=== PATIENT | female | born 1975 | race Caucasian/White ===

== ENCOUNTER 2016-10-12 14:17 | Emergency (ER) | payer MEDICAID, OTHER ==
--- NOTE | 2016-10-12 14:34 | EDPHY ---
H & P Stated Complaint: PAIZ for 3 days - Personal History LMP (Females 10-55): Now Current Tetanus/Diphtheria Vaccine: Yes Current Tetanus Diphtheria and Acellular Pertussis (TDAP): Yes Tetanus Vaccine Date: < 10 YEARS - Medical/Surgical History Hx Asthma: No Hx Chronic Respiratory Disease: No Hx Diabetes: No Hx Cardiac Disease: No Hx Renal Disease: No Hx Cirrhosis: No Hx Alcoholism: No Hx HIV/AIDS: No Hx Splenectomy or Spleen Trauma: No Other PMH: saw arnoldo 10-15 began lexapro, acifex and carafate/ - Social History Smoking Status: Never smoked Time Seen by Provider: 10/12/16 14:34 Constitutional: Initial Vital Signs Temperature (C) 36.3 C 10/12/16 14:20 Heart Rate 63 10/12/16 14:20 Respiratory Rate 16 10/12/16 14:20 Blood Pressure 129/95 H 10/12/16 14:20 O2 Sat (%) 98 10/12/16 14:20 O2 Delivery Mode Room Air Allergies/Adverse Reactions: No Known Allergies Allergy (Unverified 06/30/12 10:40) Home Medications: Medication Instructions Recorded LEVOTHYROXINE SODIUM [Tirosint mcg PO 12/30/11 25mcg] Acifex 07/10/15 Lexapro 07/10/15 oxyCODONE/APAP 5/325 [Percocet 1 tab PO Q6 #10 tab 09/06/15 5/325] Medical Decision Making - Diagnostics Imagin. CT head without contrast: Negative for intracranial hemorrhage. 2. CT venogram: Negative for acute thrombosis. Study results reported to me by Dr. Tavo Quiñones. (Tyree Hdz) ED Course/Re-evaluation: CHIEF COMPLAINT: Headache, blurred vision. HISTORY OF PRESENT ILLNESS: The patient is a 41-year-old female who presents with 3 days of right-sided headache and blurry vision. She has no history of migraines and no family migraine history. She denies extremity complaints: no numbness, no weakness, no pain. The blurriness is in both of her eyes but worse in the right. The pain is alleviated slightly with applying pressure and with Advil. She denies provoking factors. She denies head trauma, recent changes in medication. REVIEW OF SYSTEMS: A 10 point review of systems was performed and is negative with the exception of the elements mentioned in the history of present illness. PHYSICAL EXAM: HR, BP, O2 Sat, RR. Temp noted General Appearance: Alert, well hydrated, appropriate, and non-toxic appearing. Head: Atraumatic without scalp tenderness or obvious injury Eyes: Pupils equal, round, reactive to light and accommodation, EOMI, no trauma , no injection. Ears: Clear bilaterally, no perforation, normal landmarks Nose: Atraumatic, no rhinorrhea, clear. Throat: There is no erythema or exudates, no lesions, normal tonsils, mucus membranes moist. Neck: Supple, 2+ carotid upstroke, nontender, no lymphadenopathy. Respiratory: No retractions, no distress, no wheezes, and no accessory muscle use. Lungs are clear to auscultation bilaterally. Cardiovascular: Regular rate and rhythm, no murmurs, rubs, or gallops. Bilateral carotid, radial, dorsalis pedis, and posterior tibial pulses intact. Good capillary refill all extremities. Gastrointestinal: Abdomen is soft, nontender, non-distended, no masses, no rebound, no guarding, no peritoneal signs. Musculoskeletal: Normal active ROM of all extremities, atraumatic. Neurological: Alert, appropriate, and interactive. The patient has normal DTRs and non-focal cranial nerves, motor, sensory, and cerebellar exam. Skin: No rashes, good turgor, no nodules on palpation. Past medical history:Denies. Family history:No migraines. Social history:Here alone, . DIAGNOSTICS/PROCEDURES/CRITICAL CARE TIME: Study: CT of the head wwo contrast. Indication: Headache, blurry vision. Results: ____ The study was read by the radiologist, . I viewed the images myself on the PACS system. DIFFERENTIAL DIAGNOSIS: The differential diagnosis for the patient's headache included but was not limited to subarachnoid hemorrhage, migraine headache, tension headache and infectious causes such as meningitis, pharyngitis and sinusitis. MEDICAL DECISION MAKING: This is a 41-year-old female not prone to migraines who presents with a right- sided headache and blurry vision for the last 3 days. She describes the pain as a pressure. The blurriness appears to be in both eyes but is worse in the right eye. Because she does not usually get migraines and has no family history, I believe imaging is indicated. Head CT wwo contrast ordered. 30mg IV Toradol, 10mg IV Decadron, 10mg IV Reglan administered for migraine. (Neil Vasquez) The patient was turned over to me by Dr. Vasquez at shift change pending results of her CT scan and CT angiogram. Results of the patient's CT scan and CT angiogram are unremarkable. I re- evaluated the patient at 5:30 p.m.. She is feeling much better. Her blurry vision has resolved. The patient does continue to have a slight right temporal headache. The patient describes a headache that is located along the distribution of the temporalis muscle. She has a nonfocal neurologic examination. She has no meningeal symptoms. At this point time I do not feel her headache pattern is 1 consistent with subarachnoid hemorrhage. She has had a 3 day gradual constant right temporal headache which seems to be more extracranial on her exam. The patient will be instructed to use NSAIDs. She is given a prescription for Zofran as well as Gary. She has been given customary return precautions. She should follow up with her primary care provider for recheck in 2-3 days. I have told her that further evaluation by Neurology may be indicated for unimproved symptoms. The patient did recently stop her Lexapro dose for several days and resumed taking yesterday. That may be contributing to her headache today. (Tyree Hdz) Differential Diagnosis: Differential diagnosis considered includes intracranial hemorrhage, migraine syndrome, central vein thrombosis, meningitis (Tyree Hdz) - Data Points Laboratory Results: 10/12/16 15:12 POC Hgb 15.0 gm/dL (12.3-15.9) POC Hct 44 % (35.5-47.5) POC Sodium 143 mEq/L (134-144) POC Potassium 3.8 mEq/L (3.3-5.0) POC Chloride 106 mEq/L (96-108) POC BUN 27 H mg/dL (7-23) POC Creatinine 0.8 mg/dL (0.6-1.2) POC Glucose 85 mg/dL (70-100) Medications Given: Discontinued Medications Dexamethasone (Decadron Injection) 10 mg IVP EDNOW ONE Stop: 10/12/16 14:58 Last Admin: 10/12/16 15:33 Dose: 10 mg Ketorolac Tromethamine (Toradol) 30 mg IVP EDNOW ONE Stop: 10/12/16 14:58 Last Admin: 10/12/16 15:33 Dose: 30 mg Metoclopramide HCl (Reglan Injection) 10 mg IVP EDNOW ONE Stop: 10/12/16 14:58 Last Admin: 10/12/16 15:33 Dose: 10 mg Point of Care Test Results: 10/12/16 15:12 POC Sodium 143 POC Potassium 3.8 POC Chloride 106 POC BUN 27 H POC Creatinine 0.8 POC Glucose 85 Departure - Departure Disposition: Home, Routine, Self-Care Clinical Impression: Migraine Qualifiers: Qualifier Code: (G43.909) Migraine, unspecified, not intractable, without status migrainosus Condition: Good Instructions: Migraine Headache (ED) Additional Instructions: Follow up with your primary care provider in the next 1-2 days if your symptoms persist. Return to the emergency department if you experience serious worsening of condition. Take Ibuprofen or Motrin 600 mg by mouth three times a day. Gary as needed for severe pain Referrals: Domonique Henry MD [Primary Care Provider] - As per Instructions Report Scribed for: Neil Vasquez Report Scribed by: Kemar Escobar Date of Report: 10/12/16 Time of Report: 15:11
[2016-10-12] MEDS ORDERED: METOCLOPRAMIDE 10 MG/2 ML VIAL IVP ONE (14:57)
[2016-10-12] MEDS ORDERED: DEXAMETHASONE 10 MG/ML VIAL IVP ONE (14:57)
[2016-10-12] MEDS ORDERED: KETOROLAC 30 MG/1 ML SDV IVP ONE (14:57)
[2016-10-12] MEDS ORDERED: IOPAMIDOL (ISOVUE 370) 100 ML BTL IV ONE (15:54)
--- NOTE | 2016-10-12 16:47 | CT ---
CT Head (Without Contrast) October 12, 2016 at 1618 hours. Indication: Right-sided headache. Blurry vision.. Technique: Standard noncontrast head CT protocol utilizing 5 mm thick collimated slices and field of view 23 cm. Dose reduction techniques were utilized. Findings: The brain is normally developed. No intracranial hemorrhage, mass lesion, swelling, or ex traaxial fluid collection. The ventricles are normal caliber and midline. The hackett-white matter has n ormal attenuation. Mucous retention cyst is seen in the right maxillary sinus. No evidence for an ai r-fluid level in the paranasal sinuses. The bones are unremarkable. Impression: Mucous retention cyst in the right maxillary sinus. Otherwise normal. Comment: Case was discussed Dr. Tyree Jaffe. .
--- NOTE | 2016-10-12 16:56 | CT ---
CT Angiogram of the Brain at 1622 hours Clinical Indications: Headache. Blurred vision. Evaluate for venous sinus thrombosis. . Technique: CT angiogram of the brain was performed with the uneventful intravenous administration of 90 mL Isovue-370 contrast. Multiplanar reconstructions including 3D reconstructions performed and ev aluated on [employer] workstation in order to better evaluate the [place] vessels. Images were m anipulated by the radiologist at the computer workstation. Dose reduction techniques were utilized. Findings: Major vessels of the [place] are adequately displayed, demonstrating no evidence of aneurysm, vascular malformation, flow-limiting stenosis, or occlusion. Bilateral cavernous interna l carotid arteries and vertebrobasilar system demonstrates no evidence of flow-limiting stenosis, ane urysm, occlusion or dissection. Superior sagittal sinus, transverse sinuses, and major veins demonstr ate no evidence of intraluminal thrombi. The right P1 segment posterior cerebral artery is hypoplasti c with a patent right posterior communicating artery as a normal variant. Impression: Negative CT angiogram of the brain. Results called to Dr. Tyree Jaffe.
[2016-10-12 17:51] VITALS: BP 113/78; PULSE 59; RESP 14; TEMP 98.1; O2SAT 94
== END 2016-10-12 17:51 | disposition home or self-care (01) ==
DX: G43.909 Migraine, unspecified, not intractable, without status migrainosus (principal)
CPT/HCPCS: 82947-QW; 96374; J1885; J2765; Q9967

== ENCOUNTER 2018-02-12 11:40 | Emergency (ER) | payer OTHER ==
[2018-02-12] MEDS ORDERED: NS 1,000 ML IV ONE (12:58)
[2018-02-12] MEDS ORDERED: DICYCLOMINE 10 MG CAP PO ONE (12:58)
[2018-02-12 13:03] LABS: PLATELET COUNT 163 10^3/uL (150-400)
[2018-02-12] MEDS ORDERED: ACETAMINOPHEN 500 MG TAB ONE (14:30)
[2018-02-12] MEDS ORDERED: ACETAMINOPHEN 500 MG TAB PO ONE (14:31)
[2018-02-12] MEDS ORDERED: CIPROFLOXACIN 500 MG TAB PO ONE (15:25)
--- NOTE | 2018-02-12 15:25 | EDPHY ---
H & P Smoking Status: Never smoked Time Seen by Provider: 02/12/18 12:40 HPI/ROS: CHIEF COMPLAINT: Diarrhea, fever HISTORY OF PRESENT ILLNESS: 42-year-old female presents to the emergency department with 2 day history of watery diarrhea. She has not noticed any blood. No recent antibiotics. No recent travel. No known ill contacts. No vomiting. She describes diffuse abdominal cramping. This is slightly relieved after she has an episode of diarrhea but then comes back. She had a fever of 101. 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 No others are sick. She denies neck pain. No rash. No chest pain or difficulty breathing. REVIEW OF SYSTEMS: Constitutional: Fever, chills Eyes: No double or blurry vision. ENT: No sore throat. Respiratory: No cough, no shortness of breath. Cardiac: No chest pain. Gastrointestinal: Diarrhea, abdominal pain as above. No vomiting. Genitourinary: No dysuria. Musculoskeletal: No neck or back pain. Skin: No rashes. Neurological: headache. (Katey Banda) Past Medical/Surgical History: Negative (Katey Banda) Social History: (Katey Banda) Physical Exam: General Appearance: Alert, no distress. Vital signs are stable. Nontoxic appearing. Eyes: Pupils equal and round. Extraocular motions are all intact. ENT: Mouth: Mucous membranes moist. Respiratory: No wheezing, rhonchi, or rales, lungs are clear to auscultation. Cardiovascular: Regular rate and rhythm. Gastrointestinal: Abdomen is soft and nontender, no masses, no rebound or guarding, bowel sounds normal. No CVA tenderness bilaterally. Neurological: Alert and oriented x 3, cranial nerves II through XII grossly intact Skin: Warm and dry, no rashes. Musculoskeletal: Nontender to palpate along the cervical, thoracic or lumbar spine. Neck is supple. Extremities: Full range of motion and no peripheral edema. Psychiatric: Patient is oriented X 3, there is no agitation. (Katey Banda) Constitutional: Initial Vital Signs Temperature (C) 37.3 C 02/12/18 11:45 Heart Rate 84 02/12/18 11:45 Respiratory Rate 16 02/12/18 11:45 Blood Pressure 115/102 H 02/12/18 11:45 O2 Sat (%) 94 02/12/18 11:45 O2 Delivery Mode Room Air Allergies/Adverse Reactions: No Known Allergies Allergy (Unverified 02/12/18 11:49) Home Medications: Medication Instructions Recorded LEVOTHYROXINE SODIUM [Tirosint mcg PO 12/30/11 25mcg] Ciprofloxacin [Cipro 500 mg] 500 mg PO BID #10 tab 02/12/18 Escitalopram Oxalate 02/12/18 Medical Decision Making ED Course/Re-evaluation: 42-year-old female presents to the emergency department with cramping abdominal pain and diarrhea. The patient was able to provide a stool specimen. 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 Remainder laboratory studies are unremarkable. Case was discussed with Dr. Kelly Newberry, secondary supervising physician, who did not directly evaluate the patient but agrees with treatment and plan. Patient will be treated with ciprofloxacin. Patient was and courage to return to the emergency department she developed fever, change in symptoms or if she felt worse in any way. (Katey Banda) Differential Diagnosis: Including but not limited to infectious diarrhea, dehydration, electrolyte abnormality, viral diarrhea, gastroenteritis (Katey Banda) Other Provider: The patient was evaluated and managed by the Physician Loan Consultant. I discussed the patient's presentation and course with the physician family practice physician assistant and agree with the evaluation. My co-signature indicates that I have reviewed this chart and I agree with the findings and plan of care as documented. I am the secondary supervising physician. (Kelly Newberry) - Data Points Laboratory Results: Laboratory Results 02/12/18 12:27 02/12/18 12:27 Medications Given: Discontinued Medications Acetaminophen (Tylenol) 1,000 mg PO EDNOW ONE Stop: 02/12/18 14:32 Last Admin: 02/12/18 14:32 Dose: 1,000 mg Ciprofloxacin (Cipro) 500 mg PO EDNOW ONE PRN Reason: Protocol Stop: 02/12/18 15:26 Last Admin: 02/12/18 15:52 Dose: 500 mg Dicyclomine HCl (Bentyl) 20 mg PO EDNOW ONE Stop: 02/12/18 12:59 Last Admin: 02/12/18 13:14 Dose: 20 mg Sodium Chloride (Ns) 1,000 mls @ 0 mls/hr IV ONCE ONE PRN Reason: Wide Open Stop: 02/12/18 12:59 Last Admin: 02/12/18 13:13 Dose: 1,000 mls Departure - Departure Disposition: Home, Routine, Self-Care Clinical Impression: Infectious diarrhea in adult patient Condition: Good Instructions: Acute Diarrhea (ED) Additional Instructions: Ciprofloxacin twice daily for 5 days. Drink plenty of fluids. Return to the emergency department if you developed fever, bloody diarrhea, worsening abdominal cramping, or if you feel worse in any way. Referrals: Selene Gannon MD [Primary Care Provider] - As per Instructions Prescriptions: Ciprofloxacin [Cipro 500 mg] 500 mg PO BID #10 tab
[2018-02-12 15:59] VITALS: BP 112/69
== END 2018-02-12 16:02 | disposition home or self-care (01) ==
DX: A09 Infectious gastroenteritis and colitis, unspecified (principal)

== ENCOUNTER → 2019-01-27 | Outpatient (CLI) | payer OTHER | LOC: FIMAGING 12:31 | PROVIDERS: ATTEND Family Medicine | DX: Z12.31 Encounter for screening mammogram for malignant neoplasm of breast (principal) ==